=== PATIENT | female | born 1975 | race Caucasian/White ===

== ENCOUNTER 2019-02-24 17:51 | Emergency (ER) | payer MEDICAID ==
[~2019-02-24] VITALS: Ht 160 cm; Wt 65.7 kg
[~2019-02-24 17:51] MED LIST: BENZ200C68 PO
[2019-02-24 17:54] VITALS: Ht 160 cm; Wt 65.7 kg
[2019-02-24] MEDS ORDERED: ACETAMINOPHEN 500 MG TAB PO STA (18:31)
[2019-02-24] MEDS ORDERED: IBUPROFEN 200 MG TAB PO ONE (19:00)
[2019-02-24 20:20] VITALS: BP 104/66; PULSE 83; RESP 18
--- NOTE | 2019-03-03 14:35 | ERD ---
ER Documentation Chief Complaint Chief Complaint FEVER WITH COUGH X 2 DAYS HPI 43-year-old female presenting to the emergency department complaining of intermittent fever and cough for the past 2 days. She took Advil at 3 PM today with some relief. Cough is dry in nature. She also reports body aches. She denies any headache, neck pain, neck stiffness, dizziness, or other symptoms at this time. ROS All systems reviewed and are negative except as per history of present illness. Medications Home Meds Active Scripts Benzonatate* (Benzonatate*) 200 Mg Capsule, 200 MG PO TID PRN for COUGH, #15 CAP Prov:PAT CAZARES PA-C 02/24/19 Allergies Allergies: Coded Allergies: No Known Allergy (Unverified , 02/24/19) PMhx/Soc Medical and Surgical Hx: pt denies Medical Hx, pt denies Surgical Hx Hx Alcohol Use: No Hx Substance Use: No Hx Tobacco Use: No Smoking Status: Never smoker Physical Exam Physical Exam Const: No acute distress Head: Atraumatic Eyes: Normal Conjunctiva ENT: Normal External Ears, Nose and Mouth. Neck: Full range of motion. No meningismus. Resp: Clear to auscultation bilaterally Cardio: Regular rate and rhythm, no murmurs Abd: Soft, non tender, non distended. Normal bowel sounds Skin: No petechiae or rashes Back: No midline or flank tenderness Ext: No cyanosis, or edema Neur: Awake and alert Psych: Normal Mood and Affect Results 24 hrs Current Medications Medications Dose Sig/Aline Start Time Status Last (Trade) Ordered Route PRN Stop Time Admin Dose Reason Admin Ibuprofen 400 mg ONCE ONCE 02/24/19 DC 02/24/19 (Motrin) PO 19:00 18:44 02/24/19 19:01 1,000 mg ONCE STAT 02/24/19 DC 02/24/19 Acetaminophen PO 18:31 18:44 (Tylenol 02/24/19 18:34 Tab) Procedures/MDM 43-year-old female presents emergency department complaining of cough. Chest x- ray showed no abnormalities and was interpreted by the radiologist. The patient's clinical presentation is very consistent with an acute viral syndrome. The patient does not exhibit any clinical signs or symptoms concerning for serious bacterial infection or systemic illness. Based on history and clinical exam findings the patient does not appear to have evidence of pneumonia, strep pharyngitis, urinary tract infection, bacteremia, sepsis, or meningitis. For these reasons I do not believe it is necessary to obtain laboratory testing or diagnostic imaging. I believe it would be appropriate for symptom control, and close outpatient primary care follow-up. Based on patient's history of present illness and physical examination the decision was made to discharge. There is no evidence of life threatening injuries or illnesses at this time. On re-examination, patient resting in no distress, stable vital signs, reports feeling better and safe for discharge with outpatient follow up with PMD in 1-2 days. Patient given return precautions. Departure Diagnosis: Primary Impression: Cough Condition: Fair Patient Instructions: Cough, Chronic, Uncertain Cause, (Adult) [facility] Usted se scott hecho un examen mdico de control que le indica que no est en johnny condicin que requiera tratamiento urgente en el Departamento de Emergencia. Un estudio ms profundo y el tratamiento de schilling condicin pueden esperar sin ningn riesgo hasta que usted sea atendida/o en el consultorio de schilling mdico o johnny clnica. Es responsabilidad suya arreglar johnny kyra para el seguimiento del nain. MANEJO DE CONDICIONES NO URGENTES EN EL FUTURO 1) Si usted tiene un mdico de atencin primaria: Usted debera llamar a schilling mdico de atencin primaria antes de venir al departamento de emergencia. Despus de las horas de consultorio, schilling doctor o schilling asociado/a est disponible por telfono. El mdico o enfermero de rachael en el servicio telefnico puede asesorarle por ari medio para atender el problema, o nain contrario se puede programar johnny kyra. 2) Si usted no tiene un mdico de atencin primaria: Llame al mdico o clnica de referencia que aparece abajo yamini las horas de consultorio para hacer johnny kyra para que le vean. CLINICAS: [facility] [phone] [id number] [facility] [phone] [facility] [phone] [place] [id number] [phone] [facility] [phone] [address] [facility]. [phone] [address] Additional Instructions: Llame al doctor MAANA y juan johnny KYRA PARA DENTRO DE 1-2 LEROY.Dgale a la secretaria que nosotros le instruimos hacer esta kyra.Avise o llame si schilling condicin se empeora antes de la kyra. Regresa aqui si peor o no mejor. PAT CAZARES PA-C Mar 03, 2019 14:35
== END 2019-02-24 20:20 | disposition home or self-care (01) ==
LOC: FTE 17:51
DX: R05 Cough (principal)
CPT/HCPCS: 71046; Z7502; Z7610